=== PATIENT | female | born 1970 | race Hispanic/Latino ===

== ENCOUNTER → 2020-12-23 | Outpatient (CLI) | payer OTHER | END | disposition home or self-care (01) | LOC: RAH 08:26 | PROVIDERS: ATTEND Family Medicine | DX: R94.5 Abnormal results of liver function studies (principal); K76.0 Fatty (change of) liver, not elsewhere classified | CPT/HCPCS: 76700 ==

== ENCOUNTER 2021-01-30 08:05 | Day surgery (SDC) | payer OTHER ==
[2021-01-26 12:36] LABS: BASOPHILS % (AUTO) 0.5 % (0.0-5.0); EOSINOPHILS % (AUTO) 2.4 % (0.0-8.0); HEMATOCRIT 45.7 % (42-54); LYMPHOCYTES % (AUTO) 34.6 % (21.0-51.0); MEAN CORPUSCULAR HEMOGLOBIN 31.3 pg (27.0-33.0); MEAN CORPUSCULAR HGB CONC 34.6 g/dL (32.0-36.0); MEAN CORPUSCULAR VOLUME 90.5 fL (79-99); MONOCYTES % (AUTO) 7.8 % (3.0-13.0); NEUTROPHILS % (AUTO) 54.3 % (40.0-77.0); PLATELET COUNT (AUTO) 190 K/uL (130-400); RED BLOOD CELL COUNT(AUTO) 5.05 MIL/uL (4.50-6.20); RED CELL DISTRIBUTION WIDTH 12.9 % (11.0-15.5); WHITE BLOOD COUNT (AUTO) 7.5 K/uL (4.8-10.8)
[2021-01-26 13:34] LABS: POTASSIUM 5.2 mmol/L (3.5-5.1)
[2021-01-30] VITALS (18 sets, daily range): BP systolic 126–157; BP diastolic 65–97
[~2021-01-30] VITALS: Ht 167.6 cm; Wt 91.0 kg
[~2021-01-30 08:05] MED LIST: SODIUM CHLORIDE 0.9% 1000ML 1,000 ML IV SCH
[2021-01-30] MEDS ORDERED: LACTATED RINGERS 1000ML 1,000 ML IV ONE (08:52)
[2021-01-30] MEDS ORDERED: PROPOFOL 10 MG/ML 20ML VIAL IV ONE (11:18)
[2021-01-30] MEDS ORDERED: MIDAZOLAM HCL 1 MG/ML 2ML VIAL ONE (11:18)
[2021-01-30] MEDS ORDERED: SUCCINYLCHOLINE 200MG/10ML SYR ONE (11:18)
[2021-01-30] MEDS ORDERED: LIDOCAINE HCL MPF 1% 5ML VIAL ONE (11:18)
[2021-01-30] MEDS ORDERED: FENTANYL CITRATE PF 50 MCG/1 ML 2ML VIAL ONE (11:18)
[2021-01-30] MEDS ORDERED: ROCURONIUM 10MG/1ML SYR 10 MG/ML ML ONE (11:18)
[2021-01-30] MEDS ORDERED: CEFAZOLIN SODIUM 1 GM VIAL ONE (11:29)
[2021-01-30] MEDS ORDERED: CEFAZOLIN SODIUM 1 GM VIAL IVP ONE (11:31)
[2021-01-30] MEDS ORDERED: NEOSTIGMINE 5MG/5ML SYR IV ONE (11:43)
[2021-01-30] MEDS ORDERED: BUPIVACAINE/PF 0.5% 30ML VIAL ONE (11:43)
[2021-01-30] MEDS ORDERED: GLYCOPYRROLATE 1 MG/5 ML SYRINGE ONE (11:43)
== END 2021-01-30 14:05 | disposition home or self-care (01) ==
LOC: DAH 08:05 → EDSEX 09:00 → DAH 14:05
PROVIDERS: ATTEND Surgery
DX: K42.9 Umbilical hernia without obstruction or gangrene (principal); Z20.822 Contact with and (suspected) exposure to COVID-19; Z79.899 Other long term (current) drug therapy
CPT/HCPCS: 36415; 49585; 80048; 85025; A4215; A4221; A4222; A4223; A4452; A4663; A4930; C9803; G0168; J0330; J0690 ×2; J2250; J2704; J2710; J3010; J3490 ×3; J7120; U0003

== ENCOUNTER 2024-07-12 14:04 | Emergency (ER) | payer BC, OTHER ==
[~2024-07-12] VITALS: Ht 167.6 cm; Wt 88.5 kg
[2024-07-12 14:25] LABS: BASOPHILS # (AUTO) 0.04 K/uL (0.00-0.20); BASOPHILS % (AUTO) 0.4 % (0.0-5.0); EOSINOPHILS % (AUTO) 1.9 % (0.0-8.0); HEMATOCRIT 46.1 % (42-54); IMMATURE GRANULOCYTE ABSOLUTE 0.03 K/uL (0-1); LYMPHOCYTES # (AUTO) 4.7 K/uL (1.0-4.8); LYMPHOCYTES % (AUTO) 43.2 % (21.0-51.0); MEAN CORPUSCULAR HEMOGLOBIN 31.8 pg (27.0-33.0); MEAN CORPUSCULAR VOLUME 88.3 fL (79-99); MONOCYTES # (AUTO) 0.9 K/uL (0.1-1.0); MONOCYTES % (AUTO) 8.2 % (3.0-13.0); PLATELET COUNT (AUTO) 207 K/uL (130-400); RED BLOOD CELL COUNT(AUTO) 5.22 MIL/uL (4.50-6.20); RED CELL DISTRIBUTION WIDTH 12.5 % (11.0-15.5); WHITE BLOOD COUNT (AUTO) 10.8 K/uL (4.8-10.8)
[2024-07-12] MEDS: ASPIRIN 325MG TAB PO ONE (14:25)
[2024-07-12] MEDS: NITROGLYCERIN 0.4 MG SL TAB SL PRN (14:25)
[2024-07-12] MEDS ORDERED: ROSU10TA72 PO (14:32)
[2024-07-12] MEDS ORDERED: METF-444 PO (14:32)
[2024-07-12] MEDS ORDERED: LISI2.5T13 PO (14:32)
[2024-07-12 14:36] LABS: CREATININE 1.1 mg/dL (0.5-1.3); POTASSIUM 3.7 mmol/L (3.5-5.1)
[2024-07-12 14:45] LABS: MAGNESIUM 1.7 mg/dL (1.80-2.40)
[2024-07-12] MEDS ORDERED: MAGN300C PO (16:34)
[2024-07-12 17:00] VITALS: BP 157/81; PULSE 98; RESP 18; TEMP 98.5; O2SAT 98
== END 2024-07-12 17:06 | disposition home or self-care (01) ==
LOC: EDH 14:04
DX: I20.89 Other forms of angina pectoris (principal); I10 Essential (primary) hypertension; E83.42 Hypomagnesemia; E87.8 Other disorders of electrolyte and fluid balance, not elsewhere classified; E11.9 Type 2 diabetes mellitus without complications; Z79.84 Long term (current) use of oral hypoglycemic drugs; Z79.899 Other long term (current) drug therapy; Z91.041 Radiographic dye allergy status
CPT/HCPCS: 36415; 71045; 80048; 83735; 84484; 85025; 93005